=== PATIENT | male | born 2000 | race Caucasian/White ===

== ENCOUNTER 2024-03-19 13:00 | Emergency (ER) | payer BC, SELFPAY ==
[2024-03-19 13:13] VITALS: BP 173/91; PULSE 97; RESP 18; TEMP 36.7; O2SAT 99
--- NOTE | 2024-03-19 13:17 | W.ED.GENAD ---
Discharge Plan Disposition Patient Disposition: Home Condition: Stable Discharge Details Clinical Impression: Rectal bleeding Primary Care Provider: Unknown,Unknown ED Provider: Luis Carlos Wilkes Home Meds and New Rx's Prescriptions: No Action sertraline 100 mg tablet 100 mg PO DAILY dextroamphetamine-amphetamine [Adderall XR] 10 mg capsule,extended release 24hr 10 mg PO DAILY Discharge Instructions Instructions: Bloody stools in adults Additional Instructions: You were seen in the emergency department for minor rectal bleeding. This may be an internal hemorrhoid, you may try Preparation H, please talk with your primary care provider about this, if you continue to have bleeding especially with symptoms of dizziness please return to the ED, you may need a colonoscopy and a further repeat digital rectal exam to check for any microscopic blood. Your hemoglobin is normal I do not suspect any severe bleeding. Please monitor your condition and return for any emergent symptoms or concerns. Discharge Data Discharge Date/Time-TO BE ENTERED AT DEPARTURE: 03/19/24 15:38 HPI General Date/Time Provider Initiated Documentation: 03/19/24 13:17. HPI Narrative: 24 year-old male presents to ED today by POV/ambulating with a chief complaint of rectal bleeding with BM this morning. Patient states he had 2-3 wipes with copious blood that has reduced. Quality described as not painful, no excessive straining recently, endorses some vague abdominal pains- denies nausea/vomiting. Patient has high anxiety, refused bloodwork initially, states he's never had his blood drawn, no radiation to hematemesis, black stools, coffee-ground emesis, vomiting, shortness of breath. Patient endorses history of panic attacks. Severity is described as mild to moderate. Palliating factors include nothing specific attempted. Provoking factors include nothing specific. Patient not anticoagulated. Related Data Home Medications Medication Instructions Recorded Confirmed dextroamphetamine-amphetamine ER 10 mg PO DAILY 03/19/24 03/19/24 10 mg 24hr capsule,extend release (Adderall XR) sertraline 100 mg tablet 100 mg PO DAILY 03/19/24 03/19/24 Allergies Allergy/AdvReac Type Severity Reaction Status Date / Time Penicillins Allergy Skin Rash Verified 03/19/24 13:16 General Stated Complaint: GI Bleed MARIA DE JESUS: 3 Review of Systems All systems reviewed & are unremarkable except as noted in HPI and below Exam Narrative Exam Narrative: GENERAL APPEARANCE: Well-nourished, non-toxic, awake and alert, atraumatic, no acute distress. SKIN: Warm, pink, dry, intact, without rashes/lesions/ulcerations. HEAD: Normocephalic, atraumatic, normal hair distribution for gender/age. EYES: Pupils PERRLA, EOMs intact without nystagmus, normal conjunctiva, no exudates on lids/lashes. ENT: Nares patent, no circumoral cyanosis, no facial swelling NECK: Supple, trachea midline, painless cervical ROM. LUNGS/CHEST: Non-labored respirations, normal A/P diameter, symmetrical expansion, no chest wall deformity HEART (CV/PV): No peripheral edema, no JVD. ABDOMEN: Soft, non-distended, no guarding, mild tenderness RLQ without peritoneal signs, no jarett blood on XENA, no large external hemorrhoids visualized, no large internal hemorrhoids palpated. MSK: Normal ROM, no swelling/deformity to bilateral UEs or LEs, moving all extremities without weakness, no cyanosis, spine midline without tenderness, normal curvature. NEURO: Mental Status AAOx4 - alert to person, place, time, events No facial droop, no forehead involvement. Motor: No focal weakness - strength 5/5 in bilateral UEs and LEs, proximal and distal, symmetric. Sensory: sensation intact to light touch globally. Gait normal: patient ambulated without ataxia into ED room. PSYCH: euthymic, cooperative, pleasant, appropriate speech Course Vital Signs Vital signs: Vital Signs Temperature 36.7 C 03/19/24 13:13 Pulse 97 H 03/19/24 13:13 Respiratory Rate 18 03/19/24 13:13 Blood Pressure 173/91 H 03/19/24 13:13 Pulse Oximetry 99 03/19/24 13:13 Temperature 36.7 C 03/19/24 13:13 Temperature Source Temporal Artery Scan 03/19/24 13:13 Pulse 97 H 03/19/24 13:13 Respiratory Rate 18 03/19/24 13:13 Respiratory Effort Normal, Non-Labored 03/19/24 13:16 Blood Pressure 173/91 H 03/19/24 13:13 Blood Pressure Position Sitting 03/19/24 13:13 Pulse Oximetry 99 03/19/24 13:13 Oxygen Delivery Method Room Air 03/19/24 13:13 Oxygen Flow Rate 0 06/20/24 13:13 Pain Level 4 03/19/24 13:13 Medical Decision Making This dictation utilizes [id number] dictation software and may contain unedited grammatical errors. 24 year-old male presents to ED today by POV/ambulating with a chief complaint of rectal bleeding with BM this morning. Patient states he had 2-3 wipes with copious blood that has reduced. Quality described as not painful, no excessive straining recently, endorses some vague abdominal pains- denies nausea/vomiting. Patient has high anxiety, refused bloodwork initially, states he's never had his blood drawn, no radiation to hematemesis, black stools, coffee-ground emesis, vomiting, shortness of breath. Patient endorses history of panic attacks. Severity is described as mild to moderate. Palliating factors include nothing specific attempted. Provoking factors include nothing specific. Patients' medical history: Anxiety. Family and social history: Noncontributory. Pertinent exam findings / vital signs include ABDOMEN: Soft, non-distended, no guarding, mild tenderness RLQ without peritoneal signs, no jarett blood on XENA, no large external hemorrhoids visualized, no large internal hemorrhoids palpated.. Differential / pathologies of concern include stable lower GI bleeding, unlikely hemorrhage, anxiety. Diagnostic studies of: -CBC, CMP, patient had initially refused blood work states he might pass out but agrees this before shift change. Agreed to bloodwork, HgB is normal, patient is not actively bleeding, no jarett blood- likely small internal hemorrhoid or minor fissue as pathology, recommend outpatient f/u Interventions of: -1 L IV fluids. ED Course/Assessment/Plan: 24-year-old male presents with likely stable lower GI bleeding, had a few wipes of copious amounts of blood, no blood filling the bowl, scant on wiping now, no jarett blood on XENA, has high anxiety and panic, I did direct selling counselor him that likely he could be discharged within normal hemoglobin and follow-up with primary care, he spent considerable time changing his mind over agreeing or disagree to blood work, refused to sign out AMA. Patient signed out to Lashon Campos PA-C with stable hemoglobin expected and likely discharge for outpatient follow-up. Findings not consistent with GI hemorrhage. Disposition of Rectal Bleeding. Patient verbalized understanding of the plan and return to ED criteria and engaged in shared decision making. Medical Records Medical records reviewed: Yes I reviewed the patient's medical records. Lab Data Lab results reviewed: Yes I reviewed the patient's lab results. Labs: Laboratory Tests Range/Units 03/19/24 15:12 WBC (4.4-10.8) 10^3/uL 5.90 RBC (4.36-5.78) 10^6/uL 5.32 Hgb (13.5-17.5) g/dL 15.5 Hct (40.0-50.0) % 45.9 MCV (80-95) fL 86 MCH (27.0-33.0) pg 29.1 MCHC (32.0-36.0) % 33.8 RDW (11.8-14.1) % 12.5 Plt Count (130-400) 10^3/uL 273 MPV (8.0-11.0) fL 9.7 Immature Gran % % 0.3 Neutrophils % % 57.4 Lymphocytes % % 31.2 Monocytes % % 8.1 Eosinophils % % 2.7 Basophils % % 0.3 Nucleated RBC % (0.0-0.3) % 0.0 Absolute Neutrophils (1.2-6.7) 10^3/uL 3.38 Absolute Lymphocytes (1.2-3.4) 10^3/uL 1.84 Absolute Monocytes (0.1-0.8) 10^3/uL 0.48 Absolute Eosinophils (0.0-0.7) 10^3/uL 0.16 Absolute Basophils (0.0-0.2) 10^3/uL 0.02 Sodium (136-145) mmol/L 141 Potassium (3.5-5.1) mmol/L 4.3 Chloride (98-107) mmol/L 104 Carbon Dioxide (21.0-32.0) mmol/L 28.1 Anion Gap (3-11) mmol/L 8.9 BUN (7-18) mg/dL 13 Creatinine (0.70-1.30) mg/dL 1.0 Est GFR (CKD-EPI 2020) (mL/min/1.73m2) 107.78 Glucose (74-106) mg/dL 90 Calcium (8.5-10.1) mg/dL 9.5 Total Bilirubin (0.2-1.0) mg/dL 0.47 AST (15-37) U/L 27 ALT (16-63) U/L 46 Alkaline Phosphatase (46-116) U/L 68 Total Protein (6.4-8.2) g/dL 8.8 H Albumin (3.4-5.0) g/dL 4.6 Quality:SDOH Health Related Social Needs: No Data to Display PFSH All Active Problems (Updated 03/19/24 @ 15:30 by MERY Villatoro) Rectal bleeding (Acute) Social History Smoking/Tobacco Use Status: Never Smoking risk assessment performed?: Yes Alcohol Intake: never Drug use: Never Substance use type: does not use
[2024-03-19] MEDS: Normal Saline 1,000 ML 1000 ML IV (15:17)
[2024-03-19 15:23] LABS: Abs Immature Grans 0.02 10^3/uL (0.0-0.06); Absolute Basophil Count 0.02 10^3/uL (0.0-0.2); Absolute Eosinophil Count 0.16 10^3/uL (0.0-0.7); Absolute Lymphocyte Count 1.84 10^3/uL (1.2-3.4); Absolute Monocyte Count 0.48 10^3/uL (0.1-0.8); Absolute Neutrophil Count 3.38 10^3/uL (1.2-6.7); Basophils % 0.3 %; Eosinophils % 2.7 %; HCT 45.9 % (40.0-50.0); HGB 15.5 g/dL (13.5-17.5); Immature Grans % 0.3 %; Lymphocytes % 31.2 %; MCH 29.1 pg (27.0-33.0); MCHC 33.8 % (32.0-36.0); MCV 86 fL (80-95); MPV 9.7 fL (8.0-11.0); Monocytes % 8.1 %; Neutrophils % 57.4 %; Platelet Count 273 10^3/uL (130-400); RBC 5.32 10^6/uL (4.36-5.78); RDW 12.5 % (11.8-14.1); RDW-SD 39.1 fL
[2024-03-19 15:38] LABS: ALT 46 U/L (16-63); AST 27 U/L (15-37); Albumin 4.6 g/dL (3.4-5.0); Alkaline Phosphatase 68 U/L (46-116); Anion Gap 8.9 mmol/L (3-11); BUN 13 mg/dL (7-18); Bilirubin, Total 0.47 mg/dL (0.2-1.0); CO2 28.1 mmol/L (21.0-32.0); Calcium 9.5 mg/dL (8.5-10.1); Chloride 104 mmol/L (98-107); Estimated GFR 107.78 (mL/min/1.73m2); Glucose 90 mg/dL (74-106); Potassium 4.3 mmol/L (3.5-5.1); Sodium 141 mmol/L (136-145); Total Protein 8.8 g/dL (6.4-8.2)
== END 2024-03-19 15:38 | disposition home or self-care (01) ==
LOC: ER 16:03
PROVIDERS: Emergency Provider Physician Assistant
DX: K92.2 Gastrointestinal hemorrhage, unspecified (principal)
CPT/HCPCS: 36415; 80053; 99283; 85025